=== PATIENT | female | born 1970 | race Caucasian/White ===

== ENCOUNTER 2018-02-16 17:46 | Emergency (ER) | payer OTHER ==
[2018-02-16 18:11] VITALS: BP 121/86
[2018-02-16] MEDS ORDERED: KETOROLAC TROMETHAMINE 60 MG/2 ML SDV IM ONE (19:21)
[2018-02-16 19:58] LABS: ABSOLUTE BASOPHILS # (AUTO) 0.1 10^3/uL (0.0-0.2); ABSOLUTE EOSINOPHILS # (AUTO) 0.2 10^3/uL (0.0-0.6); ABSOLUTE MONOCYTES (AUTO) 0.3 10^3/uL (0.1-1.4); ABSOLUTE NEUT (AUTO) 3.6 10^3/uL (1.7-8.2); BASOPHILS % (AUTO) 1.1 % (0-2); EOSINOPHILS % (AUTO) 3.3 % (0-6); HEMATOCRIT 45.3 % (36.0-47.0); LYMPHOCYTES % (AUTO) 32.4 % (13-45); MEAN CORPUSCULAR HEMOGLOBIN 28.3 pg (27.0-33.4); MEAN CORPUSCULAR VOLUME 86 fl (80-97); MONOCYTES % (AUTO) 5.1 % (3-13); PLATELET COUNT 308 10^3/uL (150-450); RED CELL DISTRIBUTION WIDTH 13.6 % (11.5-14.0); SEGMENTED NEUTROPHILS % (AUTO) 58.1 % (42-78); TOTAL CELLS COUNTED % (AUTO) 100 %; WHITE BLOOD COUNT 6.2 10^3/uL (4.0-10.5)
[2018-02-16 20:15] LABS: APPEARANCE,URINE SLIGHTLY-CLOUDY; BILIRUBIN,URINE NEGATIVE (NEGATIVE); COLOR,URINE YELLOW; GLUCOSE, URINE NEGATIVE (NEGATIVE); KETONES,URINE NEGATIVE (NEGATIVE); LEUKOCYTE ESTERASE,URINE LARGE (NEGATIVE); NITRITE,URINE NEGATIVE (NEGATIVE); PROTEIN,URINE NEGATIVE (NEGATIVE); URINE SPECIFIC GRAVITY 1.017; UROBILINOGEN,URINE NEGATIVE mg/dL (<2.0)
[2018-02-16 20:24] LABS: ALANINE AMINOTRANSFERASE 28 U/L (9-52); ALBUMIN 4.8 g/dL (3.5-5.0); ALKALINE PHOSPHATASE 85 U/L (38-126); ANION GAP 12 (5-19); ASPARTATE AMINO TRANSFERASE 26 U/L (14-36); BILIRUBIN,DIRECT 0.2 mg/dL (0.0-0.4); BILIRUBIN,TOTAL 0.4 mg/dL (0.2-1.3); BLOOD UREA NITROGEN 12 mg/dL (7-20); CALCIUM 9.9 mg/dL (8.4-10.2); CARBON DIOXIDE 26 mmol/L (22-30); CHLORIDE 108 mmol/L (98-107); GLUCOSE 82 mg/dL (75-110); LIPASE 74.5 U/L (23-300); POTASSIUM 4.5 mmol/L (3.6-5.0); SODIUM 146.4 mmol/L (137-145); TOTAL PROTEIN 8.6 g/dL (6.3-8.2)
--- NOTE | 2018-02-16 20:46 | ER Document Report ---
ED Medical Screen (RME) - General Chief Complaint: Pain All Over Stated Complaint: JOINT PAIN, FATIGUE Time Seen by Provider: 02/16/18 19:20 Mode of Arrival: Ambulatory Information source: Patient Notes: This is a 47-year-old female with a history of pulmonary fibrosis (is followed by lacquer maker at [facility]) who presents with diffuse joint pain. She has had pain like this before and describes an event in November when she could not get out of bed for 2 days. Her lacquer maker is actually working her up for a rheumatologic disorder. The patient's mother has debilitating rheumatoid arthritis. The patient notes that she often has joint pain which is worse in the morning and improves throughout the day. She denies any fever, chills. She denies hepatitis, any exposure to STDs. TRAVEL OUTSIDE OF THE [place] IN LAST 30 DAYS: No - HPI Onset: Last week Onset/Duration: Gradual Quality of pain: Dull Severity: Moderate Pain Level: 2 Associated Symptoms: denies: Abdominal pain, Fever, Shortness of breath Exacerbated by: Movement Relieved by: Remaining still Similar symptoms previously: Yes Recently seen / treated by doctor: Yes - Related Data Smoking: Non-smoker Frequency of alcohol use: None Drug Abuse: None Allergies/Adverse Reactions: bupropion [From Wellbutrin] Allergy (Verified 02/16/18 19:05) lithium Allergy (Verified 02/16/18 19:05) meloxicam [From Mobic] Allergy (Verified 02/16/18 19:05) Past Medical History - General Information source: Patient - Social History Cigarette use (# per day): No Chew tobacco use (# tins/day): No Frequency of alcohol use: Rare Drug Abuse: None Lives with: Spouse/Significant other Family history: None - Past Medical History Cardiac Medical History: Reports: None Pulmonary Medical History: Reports: Hx Asthma, Other - Pulmonary fibrosis Endocrine Medical History: Reports: Hx Hypothyroidism Renal/ Medical History: Reports: None. Denies: Hx Peritoneal Dialysis Malignancy Medical History: Reports: None GI Medical History: Reports: None Musculoskeltal Medical History: Reports None Skin Medical History: Reports None Psychiatric Medical History: Reports: Other - History of night terrors Infectious Medical History: Reports: None Past Surgical History: Reports: Hx Cholecystectomy, Hx Nose Surgery - septum opened up, Hx Orthopedic Surgery - left knee, Hx Tubal Ligation Review of Systems - Review of Systems Constitutional: denies: Chills, Fever EENT: denies: Blurred vision, Difficulty swallowing, Mouth pain, Mouth swelling Cardiovascular: denies: Chest pain, Palpitations, Heart racing Respiratory: denies: Cough, Short of breath Gastrointestinal: denies: Abdominal pain, Constipation Genitourinary: No symptoms reported Female Genitourinary: No symptoms reported Musculoskeletal: See HPI Skin: No symptoms reported Hematologic/Lymphatic: No symptoms reported Neurological/Psychological: No symptoms reported Physical Exam - Vital signs Vitals: Temp Pulse Resp BP Pulse Ox 98.7 F 71 16 121/86 H 99 02/16/18 18:10 02/16/18 18:10 02/16/18 18:10 02/16/18 18:10 02/16/18 18:10 Notes: Physical exam: GENERAL: A 37-year-old female, alert and oriented 3, no acute distress HEAD: Atraumatic, normocephalic. EYES: Pupils equal round and reactive to light, extraocular movements intact, sclera anicteric, conjunctiva are normal. ENT: Moist mucous membranes. NECK: Normal range of motion, supple without obvious mass. LUNGS: Breath sounds clear to auscultation bilaterally and equal. No wheezes rales or rhonchi. HEART: Regular rate and rhythm without murmurs, rubs or gallops. ABDOMEN: Soft, normoactive bowel sounds. No tenderness to palpation. No guarding, no rebound. No masses appreciated. EXTREMITIES: Normal range of motion, no pitting or edema. No clubbing or cyanosis. Patient has no swelling of her elbows, wrists, MCP joints, knees. There is no erythema over any of the joints or skin. She has pain when she gets out of the chair (proximal muscle pain) but there is nothing to suggest infection over those joints. NEUROLOGICAL: Cranial nerves II through XII grossly intact. Normal speech, moving all extremities. PSYCH: Normal mood, normal affect. SKIN: Warm, Dry, normal turgor, no rashes or lesions noted. Course - Re-evaluation Re-evalutation: 02/16/18 20:51 The patient was given IM Toradol. Her urine does show some white cells and possible UTI and I am going to treat her. It is possible that she has an underlying rheumatologic issue that is exacerbated by an acute UTI. She has no evidence of sepsis. I have had a long discussion with the patient and I will treat her with antibiotics (cephalexin) and pain control (ibuprofen and oxycodone). I have advised her to follow-up with her doctors. She is undergoing a rheumatologic workup by her lacquer maker. - Vital Signs Vital signs: Temp Pulse Resp BP Pulse Ox 98.7 F 71 16 121/86 H 99 02/16/18 18:10 02/16/18 18:10 02/16/18 18:10 02/16/18 18:10 02/16/18 18:10 - Laboratory Result Diagrams: 02/16/18 19:44 02/16/18 19:44 Laboratory results interpreted by me: 02/16/18 02/16/18 02/16/18 19:44 19:44 19:44 RBC 5.30 H Sodium 146.4 H Chloride 108 H Total Protein 8.6 H Urine Blood SMALL H Ur Leukocyte Esterase LARGE H Doctor's Discharge - Discharge Clinical Impression: UTI, Arthralgias Condition: Stable Disposition: HOME, SELF-CARE Instructions: Urinary Tract Infection ([facility]) Additional Instructions: As we discussed, urine does show some evidence of infection and we will treat you for a urinary infection. A urine culture was sent and we will check it to see if any bacteria grow and if they do, we will check the susceptibility to the antibiotic we are giving you. Most of the UTIs we are seeing in the community are susceptible to the antibiotic we are giving you. Take the cephalexin as prescribed. I do want you to follow-up with your lacquer maker and I think the rheumatologic studies that they have ordered is good given all the joint pains that she been experiencing and given your family history of rheumatoid arthritis. So I would like you to follow-up with your lacquer maker. Return to the emergency room if you not tolerating the antibiotic or if you have any concerns or getting worse. Continue with ibuprofen 100 mg every 6 hours. Take oxycodone for pain unrelieved by the ibuprofen. Bring a copy of today's lab work with you when you see your doctor. Prescriptions: Oxycodone HCl 5 mg PO Q6HP PRN #25 tablet PRN Reason: Cephalexin Monohydrate [Keflex 500 mg Capsule] 500 mg PO Q6H 7 Days #28 capsule
== END 2018-02-16 20:49 | disposition home or self-care (01) ==
LOC: ER 17:46
DX: N39.0 Urinary tract infection, site not specified (principal); J84.10 Pulmonary fibrosis, unspecified; M25.50 Pain in unspecified joint
CPT/HCPCS: 99283; 96372; 36415; 87086; 83690; 85025; 80053; 81001; J1885

== ENCOUNTER 2018-03-09 00:43 | Emergency (ER) | payer OTHER ==
[2018-03-09] MEDS ORDERED: ASPIRIN 81 MG TABLET, CHEWABLE PO ONE (01:31)
--- NOTE | 2018-03-09 02:01 | ER Document Report ---
ED Cardiac - General Chief Complaint: Chest Pain Stated Complaint: CHEST PAIN Time Seen by Provider: 03/09/18 01:31 Mode of Arrival: Ambulatory Information source: Patient Notes: Patient is a 47-year-old female who presents with chief complaint of chest pain. Patient reports that the pain started approximately 2 PM today patient reports that the pain is intermittent lasts for approximately 30-45 minutes and then resolves on its own. Patient describes the pain as a squeezing and sharp pain. Patient reports associated nausea but no vomiting or shortness of breath. Patient denies any radiation of the pain. Patient is currently chest pain-free. Patient denies any cardiac history. Patient reports normal echocardiogram and nuclear stress test done in July. TRAVEL OUTSIDE OF THE [place] IN LAST 30 DAYS: No - Related Data Allergies/Adverse Reactions: bupropion [From Wellbutrin] Allergy (Verified 02/16/18 19:05) lithium Allergy (Verified 02/16/18 19:05) meloxicam [From Mobic] Allergy (Verified 02/16/18 19:05) Past Medical History - General Information source: Patient - Social History Smoking Status: Never Smoker Frequency of alcohol use: None Drug Abuse: None Family History: Reviewed & Not Pertinent Pulmonary Medical History: Reports: Hx Asthma, Other - Pulmonary fibrosis Endocrine Medical History: Reports: Hx Hypothyroidism Renal/ Medical History: Denies: Hx Peritoneal Dialysis Past Surgical History: Reports: Hx Cholecystectomy, Hx Nose Surgery - septum opened up, Hx Orthopedic Surgery - left knee, Hx Tubal Ligation - Immunizations Immunizations up to date: Yes Hx Diphtheria, Pertussis, Tetanus Vaccination: Yes Review of Systems - Review of Systems Constitutional: No symptoms reported EENT: No symptoms reported Cardiovascular: Chest pain Respiratory: No symptoms reported Gastrointestinal: Nausea Genitourinary: No symptoms reported Female Genitourinary: No symptoms reported Musculoskeletal: No symptoms reported Skin: No symptoms reported Hematologic/Lymphatic: No symptoms reported Neurological/Psychological: No symptoms reported Physical Exam - Vital signs Vitals: Temp Pulse Resp BP Pulse Ox 98.0 F 71 16 105/73 98 03/09/18 01:08 03/09/18 01:08 03/09/18 01:08 03/09/18 01:08 03/09/18 01:08 - Notes Notes: PHYSICAL EXAMINATION: GENERAL: Well-appearing, well-nourished and in no acute distress. HEAD: Atraumatic, normocephalic. EYES: Pupils equal round and reactive to light, extraocular movements intact, conjunctiva are normal. ENT: Nares patent, oropharynx clear without exudates. Moist mucous membranes. NECK: Normal range of motion, supple without lymphadenopathy LUNGS: Breath sounds clear to auscultation bilaterally and equal. No wheezes rales or rhonchi. HEART: Regular rate and rhythm without murmurs ABDOMEN: Soft, nontender, nondistended abdomen. No guarding, no rebound. No masses appreciated. Female : deferred Musculoskeletal: Normal range of motion, no pitting or edema. No cyanosis. NEUROLOGICAL: Cranial nerves grossly intact. Normal speech, normal gait. Normal sensory, motor exams PSYCH: Normal mood, normal affect. SKIN: Warm, Dry, normal turgor, no rashes or lesions noted. Course - Re-evaluation Re-evalutation: Otherwise healthy 47-year-old female presenting with chief complaint of chest pain that has resolved prior to arrival to the emergency department. Initial workup is completely benign. Normal CBC, CMP, CK, CK-MB and troponin. EKG reveals a sinus rhythm, rate 73, normal axis, no ST segment elevations or depressions. Chest x-ray is also unremarkable. Delta troponin is negative. Heart score is 2. Patient remains chest pain-free during her several hour stay in the emergency department. Vital signs are stable. Patient will be discharged home at this time. Encouraged patient to return to the emergency department should she develop worsening symptoms. Patient will have close follow-up with her primary care provider. - Vital Signs Vital signs: Temp Pulse Resp BP Pulse Ox 98.1 F 71 13 115/72 95 03/09/18 05:00 03/09/18 01:08 03/09/18 05:01 03/09/18 05:01 03/09/18 05:01 - Laboratory Result Diagrams: 03/09/18 02:00 03/09/18 02:00 Laboratory results interpreted by me: 03/09/18 02:00 Chloride 109 H Discharge - Discharge Clinical Impression: Chest pain Qualifiers: Chest pain type: unspecified Qualified Code(s): R07.9 - Chest pain, unspecified Condition: Stable Disposition: HOME, SELF-CARE Additional Instructions: Chest Pain of Unclear Cause The exact cause of your chest pain isn't clear. Fortunately, there is no evidence of a dangerous medical condition. Further testing may be required to find the source of the pain. Most often, we find that this pain is coming from the chest wall -- the muscles or rib joints in the chest. But chest pain can come from the lung and lung lining, the esophagus, the heart valves or heart lining, and even the stomach or gallbladder. Rest. Eat lightly until the pain is gone. We may prescribe medicine for pain and inflammation. You should call the physician immediately if the pain radiates to the shoulder, jaw or arms; if you start to run a fever or develop a cough; or if you develop shortness of breath, or other new or alarming symptoms. Your workup today was unremarkable. Your EKG, chest x-ray and all blood work showed no evidence of any abnormality. I would suggest consulting your primary care provider to continue your workup for the chronic fatigue you have been experiencing. Please mention to them that you are here and seen for chest pain and had a negative cardiac workup done in the emergency department. Please return for any worsening symptoms.
[2018-03-09 02:13] LABS: ABSOLUTE BASOPHILS # (AUTO) 0.1 10^3/uL (0.0-0.2); ABSOLUTE EOSINOPHILS # (AUTO) 0.1 10^3/uL (0.0-0.6); ABSOLUTE LYMPHOCYTES (AUTO) 2.1 10^3/uL (0.5-4.7); ABSOLUTE MONOCYTES (AUTO) 0.4 10^3/uL (0.1-1.4); ABSOLUTE NEUT (AUTO) 3.9 10^3/uL (1.7-8.2); BASOPHILS % (AUTO) 1.2 % (0-2); EOSINOPHILS % (AUTO) 1.6 % (0-6); HEMOGLOBIN 13.6 g/dL (12.0-15.5); LYMPHOCYTES % (AUTO) 31.8 % (13-45); MEAN CORPUSCULAR HEMOGLOBIN 28.8 pg (27.0-33.4); MEAN CORPUSCULAR VOLUME 85 fl (80-97); MONOCYTES % (AUTO) 5.7 % (3-13); PLATELET COUNT 249 10^3/uL (150-450); RED BLOOD COUNT 4.73 10^6/uL (3.72-5.28); RED CELL DISTRIBUTION WIDTH 13.3 % (11.5-14.0); SEGMENTED NEUTROPHILS % (AUTO) 59.7 % (42-78); TOTAL CELLS COUNTED % (AUTO) 100 %; WHITE BLOOD COUNT 6.6 10^3/uL (4.0-10.5)
[2018-03-09 02:26] LABS: ALANINE AMINOTRANSFERASE 20 U/L (9-52); ALKALINE PHOSPHATASE 67 U/L (38-126); ANION GAP 12 (5-19); ASPARTATE AMINO TRANSFERASE 18 U/L (14-36); BILIRUBIN,DIRECT 0.2 mg/dL (0.0-0.4); BILIRUBIN,TOTAL 0.2 mg/dL (0.2-1.3); BLOOD UREA NITROGEN 20 mg/dL (7-20); CALCIUM 9.3 mg/dL (8.4-10.2); CARBON DIOXIDE 24 mmol/L (22-30); CHLORIDE 109 mmol/L (98-107); CREATINE KINASE 35 U/L (30-135); GLUCOSE 103 mg/dL (75-110); POTASSIUM 4.3 mmol/L (3.6-5.0); SODIUM 144.7 mmol/L (137-145); TOTAL PROTEIN 7.2 g/dL (6.3-8.2)
[2018-03-09 02:45] LABS: CREATINE KINASE MB < 0.22 ng/mL (<4.55); TROPONIN I < 0.012 ng/mL
--- NOTE | 2018-03-09 03:06 | RADIOLOGY REPORT (SQ) ---
EXAM DESCRIPTION: XR CHEST 1 VIEW COMPLETED DATE/TME: 03/09/2018 01:31 CLINICAL HISTORY: chest pain COMPARISON: None. FINDINGS: Single frontal view of the chest. The cardiomediastinal silhouette has normal size and contour. No consolidation, pneumothorax, or pleural effusion. Low lung volumes. Leads overlie the chest. No displaced rib fractures identified. Upper abdominal soft tissues are unremarkable. IMPRESSION: 1. No acute pulmonary process identified.
[2018-03-09 05:07] VITALS: BP 115/72
--- NOTE | 2018-03-09 08:47 | EKG REPORT ---
SEVERITY:- NORMAL ECG - SINUS RHYTHM : Confirmed by: Cecily Aceves 09-Mar-2018 08:46:54
== END 2018-03-09 05:20 | disposition home or self-care (01) ==
LOC: ER 00:43
DX: R07.9 Chest pain, unspecified (principal); R11.0 Nausea; J45.909 Unspecified asthma, uncomplicated
CPT/HCPCS: 36415; 71045; 80053; 82550; 82553; 84484; 85025; 93005; 93010; 99285

== ENCOUNTER 2018-04-11 19:27 | Emergency (ER) | payer OTHER ==
[2018-04-11 22:41] VITALS: BP 118/82
== END 2018-04-11 23:37 | disposition left against medical advice (07) ==
LOC: ER 19:27
DX: Z53.21 Procedure and treatment not carried out due to patient leaving prior to being seen by health care provider (principal)

== ENCOUNTER 2018-07-02 23:58 | Emergency (ER) | payer OTHER ==
[2018-07-03] MEDS ORDERED: NORMAL SALINE 1000 ML 1,000 ML IV ONE (01:40)
[2018-07-03] MEDS ORDERED: ONDANSETRON HCL INJ/PF 4 MG/2 ML SDV IV ONE (01:40)
--- NOTE | 2018-07-03 01:44 | ER Document Report ---
ED General - General Chief Complaint: Chest Pain > 30 Stated Complaint: CHEST PAIN Time Seen by Provider: 07/03/18 01:28 Notes: Patient is a 48-year-old female that comes to the emergency department for chief complaint of generalized body aches, pain with deep breaths in her chest, sore throat, intermittent nausea, and tiredness. Symptoms present yesterday but significantly worsened today. She does have sick family members with viral symptoms. She denies congestion, cough, she had a fever a couple of days ago but not today. She denies any particular abdominal pain. Past medical history of asthma, pulmonary fibrosis, cholecystectomy, tubal ligation. She denies smoking, recreational drugs. TRAVEL OUTSIDE OF THE [place] IN LAST 30 DAYS: No - Related Data Allergies/Adverse Reactions: bupropion [From Wellbutrin] Allergy (Verified 02/16/18 19:05) lithium Allergy (Verified 02/16/18 19:05) meloxicam [From Mobic] Allergy (Verified 02/16/18 19:05) Past Medical History - General Information source: Patient - Social History Smoking Status: Never Smoker Frequency of alcohol use: None Drug Abuse: None Lives with: Family Family History: Reviewed & Not Pertinent Pulmonary Medical History: Reports: Hx Asthma Endocrine Medical History: Reports: Hx Hypothyroidism Renal/ Medical History: Denies: Hx Peritoneal Dialysis Past Surgical History: Reports: Hx Cholecystectomy, Hx Nose Surgery - septum opened up, Hx Orthopedic Surgery - left knee, Hx Tubal Ligation - Immunizations Immunizations up to date: Yes Hx Diphtheria, Pertussis, Tetanus Vaccination: Yes Review of Systems - Review of Systems Constitutional: See HPI EENT: See HPI Cardiovascular: See HPI Respiratory: See HPI Gastrointestinal: No symptoms reported Genitourinary: No symptoms reported Female Genitourinary: No symptoms reported Musculoskeletal: No symptoms reported Skin: No symptoms reported Hematologic/Lymphatic: No symptoms reported Neurological/Psychological: No symptoms reported Physical Exam - Vital signs Vitals: Temp Pulse Resp BP Pulse Ox 98.0 F 90 16 111/65 100 07/03/18 00:53 07/03/18 00:53 07/03/18 00:53 07/03/18 00:53 07/03/18 00:53 - Notes Notes: GENERAL: Alert, interacts well. No acute distress. HEAD: Normocephalic, atraumatic. EYES: Pupils equal, round, and reactive to light. Extraocular movements intact. ENT: Oral mucosa moist, tongue midline. Mild erythema of the posterior pharynx without swelling or evidence of abscess. Airway patent. Nares patent, no nasal septal hematoma, TM's intact. NECK: Full range of motion. Supple. Trachea midline. Mild bilateral anterior cervical adenopathy. LUNGS: Clear to auscultation bilaterally, no wheezes, rales, or rhonchi. No respiratory distress. HEART: Regular rate and rhythm. No murmur ABDOMEN: Soft, non-tender. Non-distended. Bowel sounds present in all 4 quadrants. GENITOURINARY: Deferred EXTREMITIES: Moves all 4 extremities spontaneously. No edema, normal radial and dorsalis pedis pulses bilaterally. No cyanosis. BACK: no cervical, thoracic, lumbar midline tenderness. No saddle anesthesia, normal distal neurovascular exam. NEUROLOGICAL: Alert and oriented x3. Normal speech. [cranial nerves II through XII grossly intact]. PSYCH: Normal affect, normal mood. SKIN: Warm, dry, normal turgor. No rashes or lesions noted. Course - Re-evaluation Re-evalutation: Patient is alert and well-appearing. Mild erythema of the posterior pharynx, mild anterior cervical adenopathy, abdomen is benign without elevated soft splenomegaly, airways patent, no evidence of peritonsillar abscess. Chest unremarkable, lungs clear, nonspecific symptoms. Suspect she has a viral illness. She has pain with deep breaths suggesting as well. Chest x-ray unremarkable, EKG sinus rhythm with no T wave inversions or ST segment changes in consecutive leads. Troponin is negative. CBC nonspecific. Chemistry nonspecific. Urinalysis unremarkable. Strep test is negative. I discussed all these results with patient in detail. After discussion patient will be treated with dexamethasone for her symptoms of pleurisy and lymphadenopathy, discussed how this is most likely viral, discussed follow-up and return precautions in detail, patient states satisfaction and agreement. - Vital Signs Vital signs: Temp Pulse Resp BP Pulse Ox 98.5 F 90 16 106/70 97 07/03/18 04:00 07/03/18 00:53 07/03/18 04:01 07/03/18 04:01 07/03/18 04:01 - Laboratory Result Diagrams: 07/03/18 02:30 07/03/18 03:30 Laboratory results interpreted by me: 07/03/18 07/03/18 02:30 03:30 RBC 5.33 H Chloride 113 H Glucose 126 H AST 62 H Discharge - Discharge Clinical Impression: Body aches, Lymphadenopathy Chest pain Qualifiers: Chest pain type: unspecified Qualified Code(s): R07.9 - Chest pain, unspecified Condition: Stable Disposition: HOME, SELF-CARE Additional Instructions: Your workup is reassuring. Your evaluation is most consistent with a viral illness, swollen lymph nodes along the anterior cervical chain, and pleurisy secondary to this. Given treated with dexamethasone for this, this should help symptoms improve with time, rest, stay hydrated. He can take [id number] medications in addition to this. Follow with primary care. Return if you worsen including difficulty breathing, passing out, spiking fever, or any other concerning or worsening symptoms. Pleurisy Your chest pain has been diagnosed as pleuritis (pleurisy). This is an inflammation of the surface of the lung tissue. It can be caused by a virus or , occasionally, old scar tissue. It is painful but, for the most part, not a serious problem. This pain is usually made worse by deep breathing, coughing, or sudden movements of the upper body or arms. The treatment is relief of symptoms. It includes rest, antiinflammatory medication, and pain medicine. Resolution of the pain is usually rapid once antiinflammatory medication is started. Warning signs of a more serious problem include: a fever, shortness of breath, pain that radiates to your jaw, shoulders or arms, or coughing up bloody sputum. If any of these symptoms occur, call the physician at once.
--- NOTE | 2018-07-03 02:05 | RADIOLOGY REPORT (SQ) ---
EXAM DESCRIPTION: XR CHEST 1 VIEW COMPLETED DATE/TME: 07/03/2018 01:40 CLINICAL HISTORY: 48 years, Female, chest pain, pain with deep breathing COMPARISON: None. NUMBER OF VIEWS: 1 TECHNIQUE: Portable chest LIMITATIONS: None. FINDINGS: Heart size is normal. Lungs are clear. No pneumothorax IMPRESSION: Negative chest copyright 2010 [employer]- All Rights Reserved
[2018-07-03 02:42] LABS: ABSOLUTE EOSINOPHILS # (AUTO) 0.3 10^3/uL (0.0-0.6); ABSOLUTE LYMPHOCYTES (AUTO) 1.7 10^3/uL (0.5-4.7); ABSOLUTE MONOCYTES (AUTO) 0.4 10^3/uL (0.1-1.4); ABSOLUTE NEUT (AUTO) 3.4 10^3/uL (1.7-8.2); BASOPHILS % (AUTO) 0.2 % (0-2); EOSINOPHILS % (AUTO) 4.3 % (0-6); HEMATOCRIT 44.5 % (36.0-47.0); HEMOGLOBIN 14.9 g/dL (12.0-15.5); MEAN CORPUSCULAR HEMOGLOBIN 27.9 pg (27.0-33.4); MEAN CORPUSCULAR HGB CONC 33.5 g/dL (32.0-36.0); MEAN CORPUSCULAR VOLUME 83 fl (80-97); MONOCYTES % (AUTO) 7.2 % (3-13); PLATELET COUNT 261 10^3/uL (150-450); RED BLOOD COUNT 5.33 10^6/uL (3.72-5.28); RED CELL DISTRIBUTION WIDTH 13.7 % (11.5-14.0); SEGMENTED NEUTROPHILS % (AUTO) 58.3 % (42-78); TOTAL CELLS COUNTED % (AUTO) 100 %; WHITE BLOOD COUNT 5.8 10^3/uL (4.0-10.5)
[2018-07-03 02:48] LABS: APPEARANCE,URINE SLIGHTLY-CLOUDY; BILIRUBIN,URINE NEGATIVE (NEGATIVE); COLOR,URINE YELLOW; GLUCOSE, URINE NEGATIVE (NEGATIVE); KETONES,URINE NEGATIVE (NEGATIVE); LEUKOCYTE ESTERASE,URINE NEGATIVE (NEGATIVE); NITRITE,URINE NEGATIVE (NEGATIVE); PROTEIN,URINE NEGATIVE (NEGATIVE); URINE SPECIFIC GRAVITY 1.024; UROBILINOGEN,URINE NEGATIVE mg/dL (<2.0)
[2018-07-03] MEDS ORDERED: DEXAMETHASONE SOD PHOS INJ 10 MG/1 ML VIAL IV ONE (03:21)
[2018-07-03 04:14] LABS: ALANINE AMINOTRANSFERASE 44 U/L (9-52); ALBUMIN 3.6 g/dL (3.5-5.0); ALKALINE PHOSPHATASE 107 U/L (38-126); ANION GAP 6 (5-19); ASPARTATE AMINO TRANSFERASE 62 U/L (14-36); BILIRUBIN,DIRECT 0.3 mg/dL (0.0-0.4); BILIRUBIN,TOTAL 0.3 mg/dL (0.2-1.3); BLOOD UREA NITROGEN 16 mg/dL (7-20); CALCIUM 8.8 mg/dL (8.4-10.2); CARBON DIOXIDE 23 mmol/L (22-30); CHLORIDE 113 mmol/L (98-107); GLUCOSE 126 mg/dL (75-110); POTASSIUM 4.1 mmol/L (3.6-5.0); SODIUM 142.2 mmol/L (137-145); TOTAL PROTEIN 6.4 g/dL (6.3-8.2)
[2018-07-03 04:37] VITALS: BP 106/70
--- NOTE | 2018-07-03 07:46 | EKG REPORT ---
SEVERITY:- NORMAL ECG - SINUS RHYTHM : Confirmed by: Eleanor Chi MD 03-Jul-2018 07:45:41
== END 2018-07-03 04:48 | disposition home or self-care (01) ==
LOC: ER 23:58
DX: M79.10 Myalgia, unspecified site (principal); R07.9 Chest pain, unspecified; R59.1 Generalized enlarged lymph nodes; R11.0 Nausea; Z90.49 Acquired absence of other specified parts of digestive tract; Z98.51 Tubal ligation status
CPT/HCPCS: 93005; 99285; 96361; 96374; 96375; 36415; 87070; 87880; 85025; 81025; 80053; 81001; 84484; 71045; 93010; J2405; J7030; J1100